=== PATIENT | male | born 1975 | race Caucasian/White ===

== ENCOUNTER 2017-07-07 07:38 | Emergency (ER) | payer MEDICAID ==
[2017-07-07 07:45] VITALS: RESP 16; TEMP 98.4
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
[2017-07-07 07:58] VITALS: BP 120/70; PULSE 79; O2SAT 99
== END 2017-07-07 07:57 | disposition home or self-care (01) ==
DX: S00.83XA Contusion of other part of head, initial encounter (principal); V47.1XXA Car passenger injured in collision with fixed or stationary object in nontraffic accident, initial encounter

== ENCOUNTER 2017-08-24 14:41 | Emergency (ER) | payer MEDICAID ==
[2017-08-24 15:02] VITALS: RESP 18; TEMP 98.1
[2017-08-24] MEDS ORDERED: NS 1,000 ML IV ONE (15:05)
[2017-08-24] MEDS ORDERED: KETOROLAC 30 MG/1 ML SDV IVP ONE (15:05)
[2017-08-24] MEDS ORDERED: DEXAMETHASONE 10 MG/ML VIAL IVP ONE (15:05)
[2017-08-24] MEDS ORDERED: METOCLOPRAMIDE 10 MG/2 ML VIAL IVP ONE (15:05)
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
[2017-08-24] MEDS ORDERED: IOPAMIDOL (ISOVUE 370) 100 ML BTL IV ONE (15:32)
[2017-08-24 16:56] VITALS: BP 102/69; PULSE 67; O2SAT 98
== END 2017-08-24 16:56 | disposition home or self-care (01) ==
LOC: EDUNIT#
DX: R51 Headache (principal); F17.200 Nicotine dependence, unspecified, uncomplicated; E86.9 Volume depletion, unspecified
CPT/HCPCS: 82947-QW; 96374; J1100; J1200; J1885; J2765; Q9967

== ENCOUNTER 2017-10-02 17:55 | Emergency (ER) | payer MEDICAID ==
[2017-10-02 18:01] VITALS: TEMP 98.4
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
[2017-10-02 18:29] LABS: PLATELET COUNT 216 10^3/uL (150-400)
[2017-10-02 22:44] VITALS: BP 132/74; PULSE 74; RESP 16; O2SAT 96
== END 2017-10-02 23:26 | disposition home or self-care (01) ==
LOC: EEVIPCON 17:55
DX: R45.851 Suicidal ideations (principal); F17.200 Nicotine dependence, unspecified, uncomplicated
CPT/HCPCS: 80305; G0480

== ENCOUNTER 2017-10-13 14:49 | Emergency (ER) | payer MEDICAID ==
[2017-10-13] MEDS ORDERED: ACETAMINOPHEN 500 MG TAB PO ONE (16:12)
[2017-10-13] MEDS ORDERED: LIDOCAINE 4%/MENTHOL 1% PATCH TD ONE (16:12)
[2017-10-13] MEDS ORDERED: IBUPROFEN 600 MG TAB PO ONE (16:12)
--- NOTE | 2017-10-13 16:16 | EDPHY ---
H & P Time Seen by Provider: 10/13/17 16:06 HPI/ROS: CHIEF COMPLAINT: Low back pain HISTORY OF PRESENT ILLNESS: The patient is a 42 y/o male with a history of previous back injury complaining of lower back pain after falling on ice yesterday. Yesterday, he slipped on ice while walking to work. Immediate onset of moderate LBP. The pain increases with prolonged sitting and position change. Ibuprofen with some relief. He denies weakness, numbness, urinary/ bowel sx or other associated symptoms. He denies any other injuries from the fall. REVIEW OF SYSTEMS: A 10 point review of systems was performed and is negative with the exception of the elements mentioned in the history of present illness. Past Medical/Surgical History: Back injury in 2011 Social History: Lives in [facility] at bedside, employed Smoking Status: Current every day smoker Physical Exam: General Appearance: Alert, pleasant Eyes: Pupils equal and round, no conjunctival pallor ENT, Mouth: Mucous membranes moist Neck: Normal inspection, NT Back: Normal inspection, midline tenderness in lower lumbar region, no paraspinous tenderness Neurological: A&O, motor 5/5 including dorsiflexion of the 1st toe and ankle, sensory intact to light touch Skin: Warm and dry Extremities: Normal inspection, negative straight leg raise Psychiatric: Mood and affect normal Constitutional: Initial Vital Signs Temperature (C) 36.4 C 10/13/17 14:53 Heart Rate 88 10/13/17 14:53 Respiratory Rate 16 10/13/17 14:53 Blood Pressure 123/75 H 10/13/17 14:53 O2 Sat (%) 99 10/13/17 14:53 O2 Delivery Mode Room Air Allergies/Adverse Reactions: lithium Allergy (Verified 10/02/17 17:58) No Known Drug Allergies Allergy (Verified 10/02/17 17:58) Home Medications: Medication Instructions Recorded Cyclobenzaprine [Flexeril 10 MG 10 mg PO TID PRN #15 tab 10/13/17 (*)] Medical Decision Making - Diagnostics Imaging Results: Lumbar spine x-ray independently reviewed by me reveals no acute fracture or subluxation. ED Course/Re-evaluation: The patient presents for lower back pain after a fall yesterday. On exam, his back is normal to inspection with midline tenderness. Motor function is 5/5 bilaterally. Plan for X-ray to rule out fracture. 4:30 PM- I reassessed the patient and informed him of the results of his workup. His X-rays are normal, no evidence of compression fracture. I feel he can be discharged home with ibuprofen for pain management. The patient agrees to this course of action. Follow-up instructions and return precautions given. - Data Points Medications Given: Discontinued Medications Acetaminophen (Tylenol) 1,000 mg PO EDNOW ONE Stop: 10/13/17 16:13 Last Admin: 10/13/17 16:31 Dose: 1,000 mg Ibuprofen (Motrin) 600 mg PO EDNOW ONE Stop: 10/13/17 16:13 Last Admin: 10/13/17 16:31 Dose: 600 mg Miscellaneous Information (Patch Removal) 1 ea TD DAILY21 NATHALIE Stop: 04/11/18 20:59 Last Admin: 10/13/17 16:32 Dose: Not Given Miscellaneous Medication (Icy Hot Lidocaine/Menthol 4%/1% Patch) 1 patch TD EDNOW ONE Stop: 10/13/17 16:13 Last Admin: 10/13/17 16:32 Dose: 1 patch Departure - Departure Disposition: Home, Routine, Self-Care Clinical Impression: Low back pain Qualifiers: Chronicity: acute Back pain laterality: midline Sciatica presence: without sciatica Qualified Code(s): M54.5 - Low back pain Condition: Good Instructions: Acute Low Back Pain (ED) Additional Instructions: 1. Adult Pain Control: We recommend Acetaminophen and Ibuprofen (Motrin,Advil) for pain control. When pain severe, both drugs can be used at the same time, but at different intervals. Please note the time differences. Your dose is: Acetaminophen 650mg every 6 hours Ibuprofen 600mg every 8 hours with food Note: do not take Acetaminophen with Hydrocodone (Vicodin, Lortab) or Oycodone (Percocet). These medications also contain Acetaminophen. No more than 3000mg of Acetaminophen should be taken in 24 hours (for an adult). 2. Use a lidocaine patch, available over the counter, as directed for pain. 3. Follow-up with your primary care provider for continued symptoms in 5-7 days. 4. Return to the emergency department for any weakness, numbness, or other worsening of condition. Referrals: Camilo Silva MD [Medical Doctor] - As per Instructions Stand Alone Forms: Work Excuse Prescriptions: Cyclobenzaprine [Flexeril 10 MG (*)] 10 mg PO TID PRN #15 tab PRN Reason: Spasms Report Scribed for: Massiel Medrano Report Scribed by: Radha Good Date of Report: 10/13/17 Time of Report: 16:18 Physician Review and Approval Statement: 10/13/17 16:18 Portions of this note were transcribed by a paramedical aide. I personally performed a history, physical exam, medical decision making, and confirmed accuracy of information the transcribed note.
[2017-10-13 16:41] VITALS: BP 125/80
[2017-10-13] MEDS ORDERED: PATCH REMOVAL 1 EA PATCH TD SCH (21:00)
== END 2017-10-13 16:41 | disposition home or self-care (01) ==
DX: S39.92XA Unspecified injury of lower back, initial encounter (principal); F17.200 Nicotine dependence, unspecified, uncomplicated; W01.0XXA Fall on same level from slipping, tripping and stumbling without subsequent striking against object, initial encounter; Y99.8 Other external cause status; Y93.01 Activity, walking, marching and hiking